=== PATIENT | female | born 1975 | race American Indian/Alaskan Native ===

== ENCOUNTER 2017-12-17 04:21 | Inpatient (IN) | payer OTHER ==
[2017-12-17] MEDS ORDERED: MOM 30ML SUSPENSION UDC PO (05:45)
[2017-12-17] MEDS: hydroCHLOROthiazide 12.5 MG CAPSULE PO (09:00)
[2017-12-17] MEDS: MAALOX 30 ML SUSP *UDC PO (11:33)
[2017-12-17] MEDS: ACETAMINOPHEN TAB 650MG DOSE (2X325MG) PO (12:05)
[2017-12-17] MEDS: hydrOXYzine 50 MG TAB PO (15:51)
[2017-12-17] MEDS: traZODone 50 MG TAB PO (20:02)
[2017-12-17] MEDS: ANALGESIC BALM CRM 120 GM TOP (20:03)
[2017-12-18] MEDS: ACETAMINOPHEN TAB 650MG DOSE (2X325MG) PO ×2 (01:51→16:15)
[2017-12-18] MEDS: hydrOXYzine 50 MG TAB PO ×2 (08:53→17:34)
[2017-12-18] MEDS: ANALGESIC BALM CRM 120 GM TOP ×4 (08:54→21:00)
[2017-12-18] MEDS: hydroCHLOROthiazide 12.5 MG CAPSULE PO (08:54)
[2017-12-18] MEDS: traZODone 50 MG TAB PO (20:54)
[2017-12-19] MEDS: ACETAMINOPHEN TAB 650MG DOSE (2X325MG) PO ×2 (00:02→15:58)
[2017-12-19] MEDS: ANALGESIC BALM CRM 120 GM TOP ×5 (00:49→20:35)
[2017-12-19] MEDS: hydrOXYzine 50 MG TAB PO ×3 (03:23→20:35)
[2017-12-19] MEDS: MAALOX 30 ML SUSP *UDC PO (06:41)
[2017-12-19] MEDS: hydroCHLOROthiazide 12.5 MG CAPSULE PO (08:17)
[2017-12-19] MEDS: ARIPiprazole MONOHYDRATE 400 MG INJ (ABILIFY)(J0401) IM (11:13)
[2017-12-19] MEDS: traZODone 50 MG TAB PO (20:35)
[2017-12-20] MEDS: MAALOX 30 ML SUSP *UDC PO (06:28)
[2017-12-20] MEDS: hydroCHLOROthiazide 12.5 MG CAPSULE PO (08:13)
[2017-12-20] MEDS: ANALGESIC BALM CRM 120 GM TOP (08:14)
== END 2017-12-20 11:50 | disposition home or self-care (01) | DRG 750 ==
LOC: M ED 04:21 → M ED INP 05:43 → M PSY 08:38
DX: F20.0 Paranoid schizophrenia (principal); I10 Essential (primary) hypertension; Z79.899 Other long term (current) drug therapy; F17.200 Nicotine dependence, unspecified, uncomplicated